=== PATIENT | male | born 1975 | race Two or more races ===

== ENCOUNTER 2017-04-15 13:34 | Emergency (ER) | payer SELFPAY ==
[~2017-04-15] VITALS: Ht 167.6 cm; Wt 64.5 kg
[2017-04-15 13:42] VITALS: BP 127/72
== END 2017-04-15 14:59 | disposition left against medical advice (07) ==
LOC: ED 13:34
DX: Z53.21 Procedure and treatment not carried out due to patient leaving prior to being seen by health care provider (principal)